=== PATIENT | female | born 1965 | race Caucasian/White ===

== ENCOUNTER 2023-10-04 08:00 | Emergency (ER) | payer MEDICARE, OTHER ==
[~2023-10-04] VITALS: Ht 165.1 cm; Wt 103.6 kg
[2023-10-04 08:14] VITALS: TEMP 98.5
[2023-10-04] MEDS: SODIUM CHLORIDE 0.9% 1,000 ML IV ONE (08:30)
[2023-10-04] MEDS: KETOROLAC TROMETHAMINE 30 MG/ML VIAL IVP ONE ×2 (08:30→12:15)
[2023-10-04 08:31] LABS: BASOPHILS % (AUTO) 0.5 % (0.0-2.0); EOSINOPHILS % (AUTO) 1.1 % (1.0-6.0); HEMATOCRIT 41.2 % (36-46); HEMOGLOBIN 13.5 g/dL (12.0-16.0); LYMPHOCYTES # (AUTO) 2.1 K/uL (1.0-4.8); LYMPHOCYTES % (AUTO) 23.4 % (22.0-44.0); MEAN CORPUSCULAR HEMOGLOBIN 30.4 pg (26.0-34.0); MEAN CORPUSCULAR HGB CONC 32.9 G/dL (31.0-37.0); MEAN CORPUSCULAR VOLUME 93 fL (80-100); MONOCYTES # (AUTO) 0.7 K/uL (0.1-1.0); MONOCYTES % (AUTO) 7.9 % (2.0-9.0); NEUTROPHILS # (AUTO) 5.9 K/uL (1.8-7.7); NEUTROPHILS % (AUTO) 67.1 % (40.0-70.0); PLATELET COUNT (AUTO) 298 K/uL (150-450); RED BLOOD CELL COUNT(AUTO) 4.44 MIL/uL (4.00-5.20); RED CELL DISTRIBUTION WIDTH 14.1 % (11.5-14.5); WHITE BLOOD COUNT (AUTO) 8.8 K/uL (4.5-11.0)
[2023-10-04] MEDS: ONDANSETRON HCL 4 MG/2 ML VIAL IVP ONE (08:31)
[2023-10-04 08:40] LABS: POTASSIUM 3.6 mmol/L (3.5-5.1)
[2023-10-04 08:46] LABS: ALBUMIN 3.5 g/dL (3.4-5.0); BILIRUBIN,TOTAL 0.4 mg/dL (0.1-1.0); TOTAL PROTEIN, SERUM 6.9 g/dL (6.4-8.2)
[2023-10-04] MEDS: ACETAMINOPHEN 500 MG TABLET PO ONE (12:15)
[2023-10-04 12:28] LABS: APPEARANCE,URINE CLEAR (CLEAR); BILIRUBIN,URINE NEGATIVE (NEGATIVE); COLOR,URINE LIGHT YELLOW (YELLOW); GLUCOSE, URINE (UA) NEGATIVE (NEGATIVE); KETONES,URINE NEGATIVE (NEGATIVE); LEUKOCYTE ESTERASE ,URINE NEGATIVE (NEGATIVE); NITRATE,URINE NEGATIVE (NEGATIVE); OCCULT BLOOD,URINE TRACE (NEGATIVE); PROTEIN,URINE NEGATIVE (NEGATIVE); SPECIFIC GRAVITIY, URINE 1.013 (1.003-1.030); UROBILINOGEN,URINE <=1.0 mg/dL (<=1.0)
[2023-10-04 12:41] LABS: BACTERIA,URINE None Seen /HPF (None Seen); RBC,URINE 0-2 /HPF (0-2); SQUAMOUS EPITHELIAL CELL,UR Few /LPF (None Seen); WBC,URINE None Seen /HPF (0-5)
[2023-10-04] MEDS ORDERED: IBUP-1492 PO (12:51)
[2023-10-04] MEDS ORDERED: ACET-3385 PO (12:51)
[2023-10-04] MEDS ORDERED: LEVO750T68 PO (12:51)
[2023-10-04] MEDS: LEVOFLOXACIN 250 MG TABLET PO ONE (14:21)
[2023-10-04 14:22] VITALS: BP 139/71; PULSE 72; RESP 16
== END 2023-10-04 14:30 | disposition home or self-care (01) ==
LOC: EMS 08:00
DX: N20.0 Calculus of kidney (principal); Z90.49 Acquired absence of other specified parts of digestive tract; Z90.710 Acquired absence of both cervix and uterus; Z98.890 Other specified postprocedural states; Z88.6 Allergy status to analgesic agent; Z91.040 Latex allergy status; Z88.5 Allergy status to narcotic agent; Z88.8 Allergy status to other drugs, medicaments and biological substances
CPT/HCPCS: 99285; 74176; 96374; 96361; 96375; 80053; 81001; 83690; 85025; 36415; 96376; J1885; J2405; J7030